=== PATIENT | female | born 1955 | race Hispanic/Latino ===

== ENCOUNTER 2021-04-28 07:06 | Day surgery (SDC) | payer MEDICARE ==
[~2021-04-28 07:06] MED LIST: SODIUM CHLORIDE 0.9% 1000 ML 1,000 ML IV SCH; WATER FOR IRRIG STERILE 1,000 ML BOTTLE ONE; WATER FOR IRRIG STERILE 250 ML BOTTLE IR ONE
--- NOTE | 2021-04-28 08:41 | Anesthesia Consultation ---
Anesthesia Consult and Med Hx Date of service: 04/28/21 - Airway Anesthetic Teeth Evaluation: Dentures (Upper and lower full plates) ROM Head & Neck: Adequate Mental/Hyoid Distance: Adequate Mallampati Class: Class II Intubation Access Assessment: Probably Good - Pulmonary Exam CTA: Yes - Cardiac Exam Cardiac Exam: RRR - Pre-Operative Health Status ASA Pre-Surgery Classification: ASA3 Proposed Anesthetic Plan: MAC - Pulmonary Hx Smoking: No Hx Respiratory Symptoms: No Hx Sleep Apnea: No - Cardiovascular System Hx Heart Attack/AMI: Yes - Central Nervous System Hx Seizures: No Hx Psychiatric Problems: Yes (Anxiety and depression) - Gastrointestinal Hx Gastroesophageal Reflux Disease: Yes (Hx. Colon polyps) - Endocrine Hx Renal Disease: No Hx Liver Disease: No Hx Insulin Dependent Diabetes: No Hx Non-Insulin Dependent Diabetes: No Hx Thyroid Disease: No - Other Systems Hx Alcohol Use: No Hx Substance Use: No Hx Cancer: Yes (Colon and bilateral breasts) Hx Obesity: No - Additional Comments Anesthesia Medical History Comments: Denied previous anesthesia complicatons
--- NOTE | 2021-04-28 08:43 | Anesthesia Day of Surgery ---
Anesthesia Day of Surgery - Day of Surgery Patient Examined: Yes Patient H&P Reviewed: Yes Patient is NPO: Yes Beta Blockers: No Cardiac Clearance: No Pulmonary Clearance: No
[2021-04-28] MEDS ORDERED: propofoL 200 MG/20 ML VIAL IV ONE (08:59)
[2021-04-28] MEDS ORDERED: LIDOCAINE MPF (2%) 20 MG/1 ML VIAL 5 ML ONE (09:05)
[2021-04-28] MEDS ORDERED: PHENYLEPHRINE/NS 1,000 MCG/10 ML SYRINGE (OR USE) IV ONE (09:16)
--- NOTE | 2021-04-28 09:36 | Procedure Note ---
Date of procedure: 04/28/21 Pre-op diagnosis: H/O Colon Cancer/ H/O Partial colon resection Post-op diagnosis: other (H/o Colon Cancer/ H/O PartialColon resection/ Multiple, Small Colon Polyps near the anastomotic site and a solitary, Recto- Sigmoid Polyp/Mild to Moderate Internal Hemorrhoids) Procedure: Colonoscopy with Cold Biopsy Anesthesia: [facility] [place] Surgeon: KALYN LEMONS Estimated blood loss: minimal Pathology: list Specimen disposition: to lab Condition: stable Disposition: same day (Avoid aspirin and NSAID for 5 days; otherwise resume previous medication and F/U in 1 to 2 weeks ([phone]).)
--- NOTE | 2021-04-28 10:09 | Operative Report ---
DATE OF SURGERY: 04/28/2021 PROCEDURE: Colonoscopy with cold biopsy. INDICATIONS: This is a 65-year-old white female with a prior history of breast cancer and colon cancer for which she has had partial colon resection as well as chemotherapy and radiation. Colonoscopy was done to assess for colon polyps. Last colonoscopy did show several colon polyps near the anastomotic site. DESCRIPTION OF PROCEDURE: Procedure was done after getting informed consent with MAC anesthesia. Initial rectal examination was unremarkable. The instrument was passed through the rectum onto the right colon at the anastomotic site with again there were several small polyps noted that were removed by cold biopsy, probably about 4 or 5. The remaining part of the proximal colon and the transverse colon, descending colon, and sigmoid showed normal mucosa without any additional polyps, or diverticular disease. There was a solitary polyp that was noted in the rectosigmoid area that was also removed by cold biopsy and the rectum showed mild to moderate internal hemorrhoid on the retroverted view. ASSESSMENT: History of colon cancer, partial colon resection of the proximal colon and multiple small colon polyps near the anastomotic site in the proximal colon, solitary rectosigmoid polyp, mild to moderate internal hemorrhoids. The patient will be encouraged to avoid aspirin and aspirin-related products for the next 5 days. Can resume home medication and follow up in the office in 1-2 weeks' time. Procedure was done in the GI lab with assistance of the GI lab team, which included the GI nurse, the data acquisition technician and with assistance of anesthesia. TID: [id number] RECEIPT: [id number] CYNDI
[2021-04-28 10:33] VITALS: BP 110/74
--- NOTE | 2021-04-28 12:54 | Post Anesthesia Evaluation ---
- Post Anesthesia Evaluation Patient Participated: Yes Airway Patent: Yes Stable Respiratory Function: Yes Nausea/Vomiting: No Temp > 96.8F: Yes Pain Manageable: Yes Adequeate Hydration: Yes Anesthesia Complications: No Block Receding Appropriately: Not Applicable Patient on Ventilator: No
== END 2021-04-28 10:45 | disposition home or self-care (01) ==
LOC: GIO 07:06
DX: Z12.11 Encounter for screening for malignant neoplasm of colon (principal); K64.8 Other hemorrhoids; K63.89 Other specified diseases of intestine; I10 Essential (primary) hypertension; K21.9 Gastro-esophageal reflux disease without esophagitis; F41.9 Anxiety disorder, unspecified; F32.9 Major depressive disorder, single episode, unspecified; Z85.3 Personal history of malignant neoplasm of breast; Z85.038 Personal history of other malignant neoplasm of large intestine; Z86.010 Personal history of colon polyps; Z88.8 Allergy status to other drugs, medicaments and biological substances; Z90.49 Acquired absence of other specified parts of digestive tract
CPT/HCPCS: 45380; 82962; 88305; J2370; J2704; J3490; J7030; J7120; Q0162